=== PATIENT | female | born 1955 | race Caucasian/White ===

== ENCOUNTER → 2016-12-26 | Outpatient (CLI) | payer BC ==
[~2016-12-26] MED LIST: DENOSUMAB 60 MG/ML 1 ML SYRINGE SQ ONE
[2016-12-26 10:13] VITALS: BP 149/84; PULSE 63; RESP 18; TEMP 98.2
== END | disposition home or self-care (01) ==
LOC: PROCWHC3 09:56
PROVIDERS: ATTEND Family Medicine
DX: M81.0 Age-related osteoporosis without current pathological fracture (principal)
CPT/HCPCS: 96372; J0897

== ENCOUNTER → 2018-01-03 | Outpatient (CLI) | payer BC ==
[2018-01-03 13:37] VITALS: RESP 16; TEMP 98.1
[2018-01-03 13:42] VITALS: BP 124/77; PULSE 88
== END | disposition home or self-care (01) ==
LOC: PROCWHC3 13:24
PROVIDERS: ATTEND Family Medicine
DX: M81.0 Age-related osteoporosis without current pathological fracture (principal)
CPT/HCPCS: 96372; J0897

== ENCOUNTER → 2018-06-11 | Outpatient (CLI) | payer BC ==
[2018-06-11 14:30] LABS: Basophils % (A) 0 %; Eosinophils # (A) 0.2 k/uL (0-0.7); Eosinophils % (A) 3 %; HCT 38.9 % (34.0-46.0); HGB 12.2 gm/dL (11.4-16.0); Lymphocytes # (A) 2.6 k/uL (1.0-4.8); Lymphocytes % (A) 38 %; MCH 28.5 pg (25.0-35.0); MCHC 31.4 g/dL (31.0-37.0); MCV 90.9 fL (80.0-100.0); Mean Platelet Volume 6.8; Monocytes # (A) 0.4 k/uL (0-1.0); Monocytes % (A) 6 %; Neutrophils # (A) 3.5 k/uL (1.3-7.7); Neutrophils % (A) 51 %; Platelet Count 237 k/uL (150-450); RBC 4.28 m/uL (3.80-5.40); WBC 6.8 k/uL (3.8-10.6)
[2018-06-11 19:12] LABS: LDL Cholesterol,Calculated 74.8 mg/dL (0.0-131.0); VLDL Calculation 18.2 mg/dL (5.00-40.00)
[2018-06-11 19:13] LABS: Uric Acid 5.4 mg/dL (2.9-7.7)
[2018-06-11 19:21] LABS: T4, Free (Free Thyroxine) 1.1 ng/dL (0.80-1.80)
[2018-06-11 22:53] LABS: Hemoglobin A1C 5.7 % (4.0-6.0)
== END | disposition home or self-care (01) ==
LOC: LABWHC1 13:47
PROVIDERS: ATTEND Family Medicine
DX: N18.3 Chronic kidney disease, stage 3 (moderate) (principal); R73.03 Prediabetes; E78.2 Mixed hyperlipidemia; E03.9 Hypothyroidism, unspecified
CPT/HCPCS: 36415; 80061; 83036; 84439; 84443; 84550; 85025

== ENCOUNTER → 2019-01-18 | Outpatient (CLI) | payer BC ==
[2019-01-18 15:09] LABS: Basophils % (A) 1 %; Eosinophils # (A) 0.4 k/uL (0-0.7); Eosinophils % (A) 7 %; HCT 37.1 % (34.0-46.0); HGB 12.1 gm/dL (11.4-16.0); Lymphocytes # (A) 2.2 k/uL (1.0-4.8); Lymphocytes % (A) 37 %; MCH 29.3 pg (25.0-35.0); MCHC 32.6 g/dL (31.0-37.0); MCV 90.1 fL (80.0-100.0); Mean Platelet Volume 7.3; Monocytes # (A) 0.3 k/uL (0-1.0); Monocytes % (A) 5 %; Neutrophils # (A) 2.8 k/uL (1.3-7.7); Neutrophils % (A) 49 %; Platelet Count 268 k/uL (150-450); RBC 4.11 m/uL (3.80-5.40); RDW 13.9 % (11.5-15.5); WBC 5.8 k/uL (3.8-10.6)
[2019-01-18 19:02] LABS: African American GFR (CKD) 79.4 (60.0-200.0); Albumin 4.1 g/dL (3.80-4.90); Albumin/Globulin Ratio 1.95 (1.60-3.17); Anion Gap 7.5 mmol/L (4.00-12.00); BUN/Creat Ratio 18.89 Ratio (12.00-20.00); Carbon Dioxide 24.5 mmol/L (21.6-31.8); Globulin 2.1 g/dL (1.6-3.3); Total Bilirubin 0.5 mg/dL (0.2-1.2); Total Protein 6.2 g/dL (6.2-8.2)
[2019-01-18 20:44] LABS: Cat Epith & Dander IgE <0.10 kU/L; Cockroach IgE <0.10 kU/L; Dermato. farinae IgE <0.10 kU/L; Dog Dander IgE <0.10 kU/L
[2019-01-18 20:45] LABS: Aspergillus fumagatus IgE <0.10 kU/L
[2019-01-18 21:02] LABS: Birch IgE <0.10 kU/L; Elm IgE <0.10 kU/L; Oak IgE <0.10 kU/L; Ragweed,Common IgE 0.37 kU/L; Red Top (Bentgrass) IgE <0.10 kU/L
[2019-01-18 21:04] LABS: Alternaria alternata IgE <0.10 kU/L; Maple (Box Elder) IgE <0.10 kU/L
[2019-01-18 21:29] LABS: Hemoglobin A1C 5.6 % (4.0-6.0)
[2019-01-21 11:33] LABS: Alt. alternata IgE Class CLASS 0; Alternaria alternata IgE <0.35 kU/L (<0.35); Asperg. fumagatus IgE <0.35 kU/L (<0.35); Asperg. fumagatus IgE Class CLASS 0; Bermuda Grass IgE <0.35 kU/L (<0.35); Birch(Com.Silvr) IgE <0.35 kU/L (<0.35); Birch(Com.Silvr) IgE Class CLASS 0; Cat Epith & Dander IgE <0.35 kU/L (<0.35); Cat Epith & Dander IgE Class CLASS 0; Clad herbarum IgE <0.35 kU/L (<0.35); Cockroach IgE 0.47 kU/L (<0.35); Cottonwood IgE <0.35 kU/L (<0.35); Dermato. Pteronyssinus IgE <0.35 kU/L (<0.35); Dermato. farinae IgE <0.35 kU/L (<0.35); Dermato. farinae IgE Class CLASS 0; Dog Dander IgE <0.35 kU/L (<0.35); Elm IgE <0.35 kU/L (<0.35); Maple (Box Elder) IgE <0.35 kU/L (<0.35); Maple (Box Elder) IgE Class CLASS 0; Mountain Cedar IgE <0.35 kU/L (<0.35); Mountain Cedar IgE Class CLASS 0; Mouse Urine IgE Class CLASS 0; Nettle IgE <0.35 kU/L (<0.35); Nettle IgE Class CLASS 0; Oak IgE <0.35 kU/L (<0.35); Penicillium notatum IgE Class CLASS 0; Rough Marshelder IgE <0.35 kU/L (<0.35); Rough Marshelder IgE Class CLASS 0; Timothy Grass IgE <0.35 kU/L (<0.35); White Ash IgE Class CLASS 0
== END | disposition home or self-care (01) ==
LOC: LABWHC1 14:20
PROVIDERS: ATTEND Family Medicine
DX: J44.9 Chronic obstructive pulmonary disease, unspecified (principal); M81.0 Age-related osteoporosis without current pathological fracture; J67.8 Hypersensitivity pneumonitis due to other organic dusts
CPT/HCPCS: 36415; 80053; 82785; 83036; 84439; 84443; 85025; 86001; 86003; 86606; 86609

== ENCOUNTER → 2021-08-10 | Outpatient (CLI) | payer BC ==
[2021-08-10 18:14] LABS: Basophils # (A) 0.02 X 10*3/uL (0.00-0.10); Basophils % (A) 0.3 %; Eosinophils # (A) 0.13 X 10*3/uL (0.04-0.35); Eosinophils % (A) 2.2 %; HCT 38.4 % (37.2-46.3); HGB 11.8 g/dL (12.0-15.0); Lymphocytes # (A) 2.06 X 10*3/uL (0.90-5.00); Lymphocytes % (A) 35.4 %; MCHC 30.7 g/dL (32.0-37.0); MCV 91.2 fL (80.0-97.0); Mean Platelet Volume 9.9 fL (9.5-12.2); Monocytes # (A) 0.45 X 10*3/uL (0.20-1.00); Monocytes % (A) 7.7 %; Neutrophils # (A) 3.14 X 10*3/uL (1.80-7.70); Neutrophils % (A) 54.1 %; Platelet Count 256 X 10*3/uL (140-440); RBC 4.21 X 10*6/uL (4.10-5.20); RDW 13.6 % (11.5-14.5); WBC 5.82 X 10*3/uL (4.50-10.00)
[2021-08-10 18:40] LABS: % Iron Saturation 14.43 (12.00-45.00); ALT 11 U/L (8-44); AST 12 U/L (13-35); African American GFR (CKD) 69.7 (60.0-200.0); Albumin 3.8 g/dL (3.8-4.9); Albumin/Globulin Ratio 1.54 (1.60-3.17); Alkaline Phosphatase 130 U/L (41-126); BUN/Creat Ratio 13.52 Ratio (12.00-20.00); Blood Urea Nitrogen 13.4 mg/dL (9.0-27.0); Calcium 8.6 mg/dL (8.7-10.3); Carbon Dioxide 21.2 mmol/L (20.0-27.5); Chloride 109 mmol/L (96-109); Creatine Kinase 52 U/L (26-186); Globulin 2.5 g/dL (1.6-3.3); Glucose 102 mg/dL (70-110); Iron 52 ug/dL (50-170); Non-African American GFR(CKD) 60.1 (60.0-200.0); Sodium 142 mmol/L (135-145); Total Iron Binding Capacity 358 ug/dL (228-460); Total Protein 6.3 g/dL (6.2-8.2); Uric Acid 4.8 mg/dL (2.9-7.7)
[2021-08-10 18:47] LABS: C Reactive Protein <0.30 mg/dL (0.00-0.80)
[2021-08-10 19:04] LABS: Chol/HDL Ratio 2.67 Ratio; LDL Cholesterol,Calculated 98.7 mg/dL (0.0-131.0); VLDL Calculation 13.82 mg/dL (5.00-40.00)
[2021-08-10 19:36] LABS: Protein, Total 6.4 g/dL (6.2-8.2)
[2021-08-10 20:11] LABS: Erythrocyte Sedimentation Rate 35 mm/Hr (0-30)
[2021-08-11 12:25] LABS: Albumin 3.51 g/dL (3.80-4.90); Gamma Globulin 1.05 g/dL (0.70-1.50)
== END | disposition home or self-care (01) ==
LOC: LABWHC1 11:00
PROVIDERS: ATTEND Family Medicine
DX: G25.81 Restless legs syndrome (principal); M23.91 Unspecified internal derangement of right knee; N18.2 Chronic kidney disease, stage 2 (mild); E03.9 Hypothyroidism, unspecified
CPT/HCPCS: 36415; 80053; 80061; 82306; 82550; 82607; 83540; 83550; 83883; 84165; 84439; 84443; 84550; 85025; 85652; 86140; 86334

== ENCOUNTER → 2022-06-27 | Outpatient (CLI) | payer MEDICARE, BC ==
[2022-06-27 22:51] LABS: Basophils # (A) 0.02 X 10*3/uL (0.00-0.10); Basophils % (A) 0.3 %; Eosinophils # (A) 0.07 X 10*3/uL (0.04-0.35); Eosinophils % (A) 1.1 %; HCT 40.2 % (37.2-46.3); HGB 13.2 g/dL (12.0-15.0); Immature Grans, Automated 0.3 %; Lymphocytes # (A) 2.16 X 10*3/uL (0.90-5.00); Lymphocytes % (A) 33.9 %; MCH 29.3 pg (27.0-32.0); MCHC 32.8 g/dL (32.0-37.0); MCV 89.3 fL (80.0-97.0); Mean Platelet Volume 9.5 fL (9.5-12.2); Monocytes # (A) 0.49 X 10*3/uL (0.20-1.00); Monocytes % (A) 7.7 %; NRBC Per 100 WBC 0 /100 WBCS (0.0-0.0); Neutrophils # (A) 3.61 X 10*3/uL (1.80-7.70); Neutrophils % (A) 56.7 %; Platelet Count 266 X 10*3/uL (140-440); WBC 6.37 X 10*3/uL (4.50-10.00)
[2022-06-27 22:54] LABS: Anion Gap 11.3 mmol/L (10.00-18.00); Carbon Dioxide 23.7 mmol/L (20.0-27.5); Potassium 4.2 mmol/L (3.5-5.5)
== END | disposition home or self-care (01) ==
LOC: LABPAT 15:30
PROVIDERS: ATTEND Orthopaedic Surgery
DX: Z01.812 Encounter for preprocedural laboratory examination (principal); M23.91 Unspecified internal derangement of right knee
CPT/HCPCS: 80051; 85025; 93005

== ENCOUNTER 2022-07-15 09:12 | Day surgery (SDC) | payer MEDICARE, BC ==
[2022-07-12 12:29] VITALS: BMI 29.2
--- NOTE | 2022-07-14 12:07 | P.HPOR ---
History of Present Illness H&P Date: 07/14/22 Chief Complaint: Right knee pain The patient is a 66-year-old retired female who presents with progressive right knee pain for the past several months. She notes locking and giving way. She has intermittent swelling along with pain with weightbearing activities. She is having night symptoms. She had a previous surgery several years ago. She's tried medications in addition to an injection and therapy without much relief. Review of Systems As per HPI Past Medical History Past Medical History: GERD/Reflux, Hyperlipidemia, Osteoarthritis (OA), Thyroid Disorder Additional Past Medical History / Comment(s): Carotid stenosis, being monitored by Process Environmental Technician, Dr Cleaning. History of Any Multi-Drug Resistant Organisms: None Reported Past Surgical History: Appendectomy, Back Surgery, Cholecystectomy, Hysterectomy, Tonsillectomy Additional Past Surgical History / Comment(s): Back fusion. Previous right knee surgery Past Anesthesia/Blood Transfusion Reactions: Motion Sickness, Postoperative Nausea & Vomiting (PONV) Past Psychological History: Anxiety, Depression Smoking Status: Former smoker Past Alcohol Use History: None Reported Additional Past Alcohol Use History / Comment(s): Quit smoking 7 yrs ago. Past Drug Use History: None Reported - Past Family History Mother Family Medical History: Deep Vein Thrombosis (DVT) Medications and Allergies Home Medications Medication Instructions Recorded Confirmed Type Atorvastatin [Lipitor] 40 mg PO DAILY 12/22/14 07/12/22 History Aspirin [Adult Low Dose Aspirin EC] 81 mg PO DAILY 07/12/22 07/12/22 History Celecoxib [CeleBREX] 200 mg PO DAILY 07/12/22 07/12/22 History Cyclobenzaprine [Flexeril] 5 mg PO TID PRN 07/12/22 07/12/22 History DULoxetine HCL [Cymbalta] 60 mg PO DAILY 07/12/22 07/12/22 History Levothyroxine Sodium [Synthroid] 50 mcg PO QAM 07/12/22 07/12/22 History Pantoprazole [Protonix] 40 mg PO QAM 07/12/22 07/12/22 History buPROPion HCL [buPROPion HCL XL] 300 mg PO QAM 07/12/22 07/12/22 History Allergies Allergy/AdvReac Type Severity Reaction Status Date / Time codeine Allergy Itching Verified 07/12/22 12:15 Penicillins Allergy Dyspnea Verified 07/12/22 12:15 Physical Examination - Knee right Appearance: effusion Effusion grade: trace Varus alignment in stance: 5 degrees Tenderness with palpation: lateral Gait: limping ROM: extension: -10 degrees ROM: flexion: 100 degrees Crepitus with motion: Yes Strength: extension: 5/5 Strength: flexion: 5/5 Meniscal tests: lateral meniscal tests: positive, lateral joint line pain: positive Results The patient is a well-developed well-nourished female proximal a 5 foot 4, 160 pounds of mesomorphic habitus. HEENT exam is nonfocal, neck is supple. She has painless passive motion the right hip. Straight leg raise is negative. Her distal neurovascular appears intact in the right lower extremity. - Diagnostic results Knee MRI: image reviewed (Right knee MRI shows evidence of a complex posterior lateral meniscal tear.) Assessment and Plan Assessment: Right knee internal derangement/symptomatic medial meniscal tear Right knee moderate medial compartment osteoarthrosis Plan: I talked to the patient at length regarding her condition along with treatment options. She's having persistent pain and mechanical symptoms despite previous conservative measures. After thorough discussion she has to proceed with surgery. We'll plan to proceed with arthroscopic evaluation with possible partial lateral meniscectomy of the right knee. We'll likely perform that as an outpatient procedure. Risks and benefits were discussed at length in layman's terms.
[2022-07-15] MEDS ORDERED: LIDOCAINE 1% (10MG/ML) FOR IV START INTRADERMA PRN (09:39)
[2022-07-15] MEDS ORDERED: HYDROmorphone 0.5 MG/0.5 ML SYRINGE IVP PRN (09:39)
[2022-07-15] MEDS ORDERED: ONDANSETRON 4 MG/2 ML VIAL IVP ONE ×2 (09:39→13:25)
[2022-07-15] MEDS ORDERED: LACTATED RINGERS 1,000 ML IV SCH (09:39)
[2022-07-15] MEDS ORDERED: DEXAMETHASONE SOD PHOSPHATE 4 MG/ML 1 ML VIAL IV ONE (09:39)
[2022-07-15] MEDS ORDERED: MIDAZOLAM 2 MG/2 ML VIAL IV PRN (09:39)
[2022-07-15] MEDS ORDERED: LIDOCAINE 1% (10MG/ML) FOR IV START SQ ONE (09:55)
[2022-07-15] MEDS ORDERED: LIDOCAINE 2% INJ 20 MG/ML (2 ML VIAL) ONE (11:37)
[2022-07-15] MEDS ORDERED: KETOROLAC 15 MG/ML 1 ML VIAL ONE (11:37)
[2022-07-15] MEDS ORDERED: PROPOFOL 10 MG/ML 20 ML VIAL IV ONE (11:37)
[2022-07-15] MEDS ORDERED: MIDAZOLAM 2 MG/2 ML VIAL ONE (11:37)
[2022-07-15] MEDS ORDERED: fentaNYL (PF) 50 MCG/ML 2 ML AMP ONE (11:37)
[2022-07-15] MEDS ORDERED: EPINEPHrine (PF) 1 ML in SODIUM CHLORIDE 0.9% IRRIGATIO 3,000 ML IRRIGATION ONE ×4 (11:42)
--- NOTE | 2022-07-15 12:27 | P.OP ---
Date of Procedure: 07/15/22 Preoperative Diagnosis: Right knee internal derangement Postoperative Diagnosis: Right knee anterior/posterior lateral meniscal tear, posterior medial meniscal tear Procedure(s) Performed: Right knee arthroscopic partial lateral meniscectomy/partial medial meniscectomy Anesthesia: BRODERICK Surgeon: Andrea Gutierrez Estimated Blood Loss (ml): 10 Pathology: none sent Condition: stable Disposition: PACU Indications for Procedure: The patient's a 66-year-old female that presents with progressive right knee pain and mechanical symptoms despite conservative measures. A discussion of the risks and benefits of operative intervention versus continued conservative measures was made with patient. She opted to proceed with surgery. Operative risks to include infection, neurovascular injury, development of blood clots, possible incomplete resolution of symptoms, possible worsening symptoms and need for subsequent procedures was discussed. Informed consent was obtained. Operative Findings: As below Description of Procedure: The patient was brought to the operating room, and after induction of general anesthesia examined the right knee. Collaterals were stable, Sonja was negative, and posterior drawer was negative. The right lower extremity was prepped and draped in a normal fashion. A superior lateral portal was made through a 3 mm skin incision superior and lateral to the patella. This was used for outflow. A lateral portal was made through a 5 mm vertical skin incision lateral to the patella tendon above the joint line. Diagnostic arthroscopy was performed. On inspection of the medial compartment, a radial tear involving the posterior horn medial meniscus in the white-white junction was noted.. This was debrided back to stable base with straight baskets and a motorized shaver. On inspection of the notch, the anterior cruciate ligament appeared to be intact. On inspection of the lateral compartment, a complex tear involving the anterior horn was noted in the white-red junction. This to be back to stable base with a motorized shaver and straight baskets. An oblique tear involving the posterior of the lateral meniscus in the white-white junction was noted. This was debrided back to stable base with straight baskets. Grade 2 chondral changes were noted diffusely in lateral compartment.. On inspection of the patellofemoral articulation there was chondral fibrillation however no loose chondral fragments.. The gutters were clear of debris. The knee was then thoroughly irrigated. The portals were closed with Steri-Strips. A sterile dressing was applied in addition to a compression stocking. The patient was awoken from general anesthesia and transferred to recovery room in good condition. Blood loss was estimated at 10 mL. No complications were incurred.
[2022-07-15 12:37] VITALS: TEMP 97.3
[2022-07-15] MEDS: MEPERIDINE 50 MG/ML SYRINGE IVP ONE ×2 (12:43→13:05)
[2022-07-15 13:36] VITALS: RESP 16
[2022-07-15 14:39] VITALS: BP 143/86; PULSE 93
== END 2022-07-15 15:22 | disposition home or self-care (01) ==
LOC: OR 09:12
PROVIDERS: ATTEND Orthopaedic Surgery
DX: S83.241A Other tear of medial meniscus, current injury, right knee, initial encounter (principal); S83.281A Other tear of lateral meniscus, current injury, right knee, initial encounter; M19.90 Unspecified osteoarthritis, unspecified site; I73.9 Peripheral vascular disease, unspecified; E78.5 Hyperlipidemia, unspecified; E07.9 Disorder of thyroid, unspecified; K21.9 Gastro-esophageal reflux disease without esophagitis; F32.A Depression, unspecified; F41.9 Anxiety disorder, unspecified; Z87.891 Personal history of nicotine dependence; I65.29 Occlusion and stenosis of unspecified carotid artery; Z79.891 Long term (current) use of opiate analgesic; Z79.82 Long term (current) use of aspirin; Z79.899 Other long term (current) drug therapy; Z79.1 Long term (current) use of non-steroidal anti-inflammatories (NSAID); Z88.0 Allergy status to penicillin; Z88.5 Allergy status to narcotic agent; Z90.49 Acquired absence of other specified parts of digestive tract; X58.XXXA Exposure to other specified factors, initial encounter
CPT/HCPCS: 29880; J2250; J1100; J2175; J2405; J0690; J0171; J3010; J1885; J2704; J1170; J2001

== ENCOUNTER → 2022-12-15 | Outpatient (CLI) | payer MEDICARE, BC ==
[2022-12-16 17:37] LABS: Cyclic Citrull Pep IgG Unit <1.5 U/mL (<=3.9); Cyclic Citrullinated Pep IgG Negative
== END | disposition home or self-care (01) ==
LOC: LABWHC1 15:13
PROVIDERS: ATTEND Family Medicine
DX: E03.9 Hypothyroidism, unspecified (principal); E78.2 Mixed hyperlipidemia; M25.561 Pain in right knee; N18.2 Chronic kidney disease, stage 2 (mild)
CPT/HCPCS: 36415; 80053; 80061; 84439; 84443; 84550; 85652; 86038; 86140; 86200; 86618

== ENCOUNTER → 2023-11-13 | Outpatient (CLI) | payer MEDICARE, BC ==
[2023-11-13 19:27] LABS: Basophils # (A) 0.04 X 10*3/uL (0.00-0.10); Basophils % (A) 0.7 %; Eosinophils # (A) 0.13 X 10*3/uL (0.04-0.35); Eosinophils % (A) 2.2 %; HCT 38.3 % (37.2-46.3); HGB 12.3 g/dL (12.0-15.0); Lymphocytes # (A) 2.15 X 10*3/uL (0.90-5.00); Lymphocytes % (A) 36.9 %; MCH 28.5 pg (27.0-32.0); MCHC 32.1 g/dL (32.0-37.0); MCV 88.9 FL (80.0-97.0); Monocytes # (A) 0.49 X 10*3/uL (0.20-1.00); Monocytes % (A) 8.4 %; NRBC Per 100 WBC 0 X 10*3/uL (0.00-0.01); Neutrophils % (A) 51.6 %; Platelet Count 247 X 10*3/uL (140-440); RBC 4.31 X 10*6/uL (4.10-5.20); RDW 13.2 % (11.5-14.5); WBC 5.82 X 10*3/uL (4.50-10.00)
[2023-11-13 20:08] LABS: ALT 10 U/L (8-44); AST 17 U/L (13-35); Albumin/Globulin Ratio 1.54 Ratio (1.60-3.17); Alkaline Phosphatase 100 U/L (41-126); Blood Urea Nitrogen 16.6 mg/dL (9.0-27.0); Calcium 9.1 mg/dL (8.7-10.3); Carbon Dioxide 20.9 mmol/L (21.6-31.8); Chloride 108 mmol/L (96-109); Globulin 2.6 g/dL (1.6-3.3); Glucose 96 mg/dL (70-110); Potassium 3.9 mmol/L (3.5-5.5); Sodium 142 mmol/L (135-145); Total Bilirubin 0.6 mg/dL (0.3-1.2); Total Protein 6.6 g/dL (6.2-8.2)
[2023-11-14 10:58] LABS: INR 1.01 sec (0.93-1.11); Prothrombin Time 10.9 sec (9.9-11.9)
== END | disposition home or self-care (01) ==
LOC: LABPAT 14:03
PROVIDERS: ATTEND Orthopaedic Surgery
DX: Z01.812 Encounter for preprocedural laboratory examination (principal); Z22.322 Carrier or suspected carrier of Methicillin resistant Staphylococcus aureus; E78.2 Mixed hyperlipidemia; M17.11 Unilateral primary osteoarthritis, right knee; R79.1 Abnormal coagulation profile
CPT/HCPCS: 36415; 80053; 85025; 85610; 87070

== ENCOUNTER 2023-12-08 05:37 | Day surgery (SDC) | payer MEDICARE, BC ==
[2023-12-05 15:42] VITALS: BMI 28.1
--- NOTE | 2023-12-07 09:26 | P.HPOR ---
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 She is having pain with weightbearing activities and at night. She also notes instability. She tr ied medications in addition to injections with only temporary partial relief. Review of Systems As per HPI Past Medical History Past Medical History: GERD/Reflux, Hyperlipidemia, Osteoarthritis (OA), Thyroid Disorder Additional Past Medical History / Comment(s): Carotid stenosis, being monitored by Supervisor [employer], Dr Cleaning. History of Any Multi-Drug Resistant Organisms: None Reported Past Surgical History: Appendectomy, Back Surgery, Cholecystectomy, Hyste rectomy, Tonsillectomy Additional Past Surgical History / Comment(s): Back fusion. Previous right knee surgery, COLONOSCOPY, Past Anesthesia/Blood Transfusion Reactions: Motion Sickness, Postoperative Nausea & Vomiting (PONV) Smoking Status: Former smoker - Past Family History Mother Family Medical History: Deep Vein Thrombosis (DVT) Medications and Allergies Home Medications Medication Instructions Recorded Confirmed Type Atorvastatin [Lipitor] 40 mg PO DAILY 12/22/14 12/05/23 History Aspirin [Adult Low Dose Aspirin EC] 81 mg PO DAILY 07/12/22 12/05/23 History Celecoxib [CeleBREX] 200 mg PO DAILY 07/12/22 12/05/23 History Cyclobenzaprine [Flexeril] 5 mg PO TID PRN 07/12/22 12/05/23 History DULoxetine HCL [Cymbalta] 60 mg PO DAILY 07/12/22 12/05/23 History Levothyroxine Sodium [Synthroid] 50 mcg PO QAM 07/12/22 12/05/23 History Pantoprazole [Protonix] 40 mg PO QAM 07/12/22 12/05/23 History buPROPion HCL [buPROPion HCL XL] 300 mg PO QAM 07/12/22 12/05/23 History Amitriptyline HCl 10 mg PO HS 12/05/23 12/05/23 History Allergies Allergy/AdvReac Type Severity Reaction Status Date / Time codeine Allergy Itching Verified 12/05/23 15:03 Penicillins Allergy Dyspnea Verified 12/05/23 15:03 Physical Examination - Knee right Appearance: effusion Effusion grade: grade 2 Valgus alignment in stance: 10 degrees Tenderness with palpation: anterior, medial, lateral Pain: throughout ROM Gait: limping ROM: extension: -10 degrees ROM: flexion: 90 degrees Crepitus with motion: Yes Strength: extension: 5/5 Strength: flexion: 5/5 Meniscal tests: medial meniscal tests: positive, lateral meniscal tests: positive, medial joint line pain: positive, lateral joint line pain: positive Results Patient is a well-developed well-nourished female approximately 5 foot 4, 160 pounds. HEENT exam is nonfocal, neck is supple. She has painless passive motion of the right hip. Straight leg raise is negative. She is tender about the medial and lateral joint line of the right knee. Collaterals are stable, Sonja is negative, Kennedi's is equivocal. Her distal neurovascular appears intact in the right lower extremity. - Diagnostic results Knee x-ray: image reviewed (3 views of the right knee obtained in the office show severe lateral compartment narrowing with [id number] changes and subchondral sclerosis.) Assessment and Plan Assessment: Right knee severe lateral compartment osteoarthrosis Plan: I talked to the patient at length regarding her condition along with treatment options. At this point she is quite symptomatic despite conservative measures. After a thorough discussion she opts to proceed with surgery. We will plan to proceed with right total knee arthroplasty. Risks and benefits are discussed at length in layman's terms. We will institute DVT prophylaxis postoperatively.
[~2023-12-08 05:37] MED LIST changes: -DENOSUMAB 60 MG/ML 1 ML SYRINGE SQ ONE; +TRANEXAMIC 1,000 MG/100ML-NACL 1,000 MG in SALINE 1 100ML.BAG IVPB PRN
[2023-12-08] MEDS: ACETAMINOPHEN TAB 500 MG TAB PO PRN (06:47)
[2023-12-08] MEDS: MELOXICAM 7.5 MG TAB PO PRN (06:48)
[2023-12-08] MEDS: DEXAMETHASONE SOD PHOSPHATE 4 MG/ML 1 ML VIAL IV ONE (06:50)
[2023-12-08] MEDS: LACTATED RINGERS 1,000 ML IV SCH (06:50)
[2023-12-08] MEDS: ONDANSETRON 4 MG/2 ML VIAL IVP ONE (06:50)
[2023-12-08] MEDS: MIDAZOLAM 2 MG/2 ML VIAL IVP ONE (06:58)
[2023-12-08] MEDS: fentaNYL (PF) 50 MCG/ML 2 ML AMP IVP ONE (06:58)
[2023-12-08] MEDS ORDERED: fentaNYL (PF) 50 MCG/ML 2 ML AMP IV PRN (07:00)
[2023-12-08] MEDS: IV FLUID CONTINUATION 1,000 ML IV ONE (07:17)
[2023-12-08] MEDS ORDERED: KETAMINE HCL IN 0.9 % NACL 50 MG/5 ML SYRINGE ONE (07:23)
[2023-12-08] MEDS ORDERED: ROPIVACAINE 5 MG/ML 30 ML VIAL ONE (07:23)
[2023-12-08] MEDS ORDERED: PHENYLEPHRINE 10 MG/ML VIAL ONE (07:23)
[2023-12-08] MEDS ORDERED: TRANEXAMIC 1,000 MG/100ML-NACL PREMIX BAG ONE (07:23)
[2023-12-08] MEDS ORDERED: MIDAZOLAM 2 MG/2 ML VIAL ONE (07:23)
[2023-12-08] MEDS ORDERED: PROPOFOL 10 MG/ML 20 ML VIAL IV ONE (07:23)
[2023-12-08] MEDS ORDERED: SODIUM CHLORIDE 0.9% (PF) 10 ML VIAL ONE (07:23)
[2023-12-08] MEDS ORDERED: fentaNYL (PF) 50 MCG/ML 2 ML AMP ONE (07:23)
[2023-12-08] MEDS: ceFAZolin 1,000 MG in SODIUM CHLORIDE 0.9% 1,000 ML IRRIGATION ONE (08:12)
[2023-12-08] MEDS: LACTATED RINGERS 1,000 ML IV ONE (08:48)
[2023-12-08] MEDS ORDERED: MAGNESIUM HYDROXIDE 2,400 MG/30 ML CUP PO PRN (09:14)
[2023-12-08] MEDS ORDERED: NALOXONE 0.4 MG/ML 1 ML VIAL IV PRN (09:14)
[2023-12-08] MEDS ORDERED: HYDROcodone/APAP 5-325MG 1 EACH TAB PO PRN (09:14)
[2023-12-08] MEDS ORDERED: HYDROmorphone 0.5 MG/0.5 ML SYRINGE IVP PRN ×2 (09:14→10:26)
--- NOTE | 2023-12-08 09:31 | P.OP ---
Date of Procedure: 12/08/23 Preoperative Diagnosis: Right knee severe tricompartmental osteoarthrosis Postoperative Diagnosis: Same Procedure(s) Performed: Right total knee arthroplastycementedcruciate retaining Implants: [employer] journey 2 size 4 cemented femoral component, size 3 cemented tibial component, 9 mm articular surface, 29 mm cemented patellar component. Anesthesia: regional, spinal Surgeon: Andrea Gutierrez Medical Service Technician #1: Isaac Parikh Estimated Blood Loss (ml): 50 Pathology: none sent Condition: stable Disposition: PACU Indications for Procedure: The patient is a 67-year-old female who presents with progressive right knee pain secondary to osteoarthrosis despite conservative measures. A discussion of the risks and benefits of operative intervention versus continued conservative measures was made with the patient. She opted proceed with surgery. Operative risks include infection, fracture, neurovascular injury, development of blood clots, possible component loosening, possible component failure and need for subsequent procedures was discussed. Informed consent was obtained. Operative Findings: As below Description of Procedure: The patient was brought to the operating room, and after induction of spinal anesthesia the right lower extremity was prepped and draped in a normal fashion. The tourniquet was inflated to 270 mmHg. A longitudinal incision extending 3 finger breaths above the superior pole of the patella extending to the medial aspect the tibial tubercle was then made. The skin and subcutaneous tissues were divided sharply. Electrocautery was used for hemostasis. A medial parapatellar arthrotomy was then performed. The medial soft tissues to include the superficial and deep portions of the medial collateral ligament as well as the medial hamstring tendons were elevated subperiosteally. The proximal medial tibia osteophytes were carefully removed. The patella was everted. The knee was flexed. A portion of the retropatellar fat pad was excised sharply. The anterior cruciate ligament was sacrificed. A starting hole was made in the distal femur 1 cm anterior to the posterior cruciate origin. An intramedullary femoral guide was gently inserted planning on 5 valgus distal cut with 9 mm distal resection. The cutting block was pinned in place. The distal cut was then made. The posterior referencing sizing guide was utilized. 3 of external rotation was built into the system and verified off the trans- epicondylar axis and the posterior condyles. I felt size 4 was most appropriate. The cutting block was pinned in place. The anterior, posterior, and chamfer cuts were then made. The bone fragments were removed. A sulcus cut was then made with the appropriate guide. The trial size 4 femoral component was then placed and was fully seated. There was good anterior to posterior and medial to lateral fit. The distal peg holes were then drilled. The trial component was then removed. Attention was then paid towards preparing the proximal tibia. An extra medullary guide was utilized in line with the tibial shaft and second metatarsal distally. A 7 posterior slope was planned. I planned on 2 mm resection from the medial compartment. The cutting block was pinned in place. The proximal tibial cut was then made. The bone was removed in one fragment. The remnants of the medial and lateral menisci were excised the capsule junction with electrocautery. The tibia sized most appropriately at size 3. The posterior osteophytes off the distal femur were carefully removed with a curved osteotome. The trial tibial and femoral components were placed along with a 9 millimeters articular surface. I was able to obtain full flexion and extension with good stability with varus and valgus stress. After several flexion and extension cycles, the tibial rotation was marked with electrocautery in line with the medial one third of the tibial tubercle. Attention was then paid towards preparing the patella. A patella reamer was utilized taking this down to 14 mm of bone stock. A good flush cut was made. The patella sized most appropriately at 29 millimeters. The peg holes were then drilled. The trial component was placed. The knee was taken through a range of motion. I had good patellofemoral tracking with no hands technique. The trial components were then removed. The tibia was prepared in the appropriate rotation with appropriate drill and keel punch. The flexion and extension gaps were checked and felt to be symmetric. The bony surfaces were prepared with pulsatile lavage and drie d. The deep tibial component was then cemented in place and was fully seated. Excess cement was removed. The femoral component was cemented in place and was fully seated. Again excess cement was removed. The trial 9 millimeters surface was then inserted in the knee was put in full extension. The patella component was cemented in place. After the cement had sufficiently hardened, the knee was again taken through a range of motion. Again there was good stability in flexion and extension with varus and valgus stress. The trial articular surface was then removed. The final articular surface was placed and was impacted. Care was taken to avoid any soft tissue interposition. Pulsatile lavage was again utilized. The tourniquet was deflated with approximately 60 minutes total tourniquet time. There was minimal drainage therefore a deep drain was not placed. The medial parapatellar arthrotomy was then closed with #2 Ethibond suture. The subcutaneous tissues were reapproximated interrupted 2-0 Vicryl sutures. The skin was reapproximated with 3-0 subarticular strata fix suture. Skin tape and adhesive was applied. A sterile dressing was applied. The patient was then awoken from sedation and transferred to recovery room in good condition. Blood loss was estimated at 50 milliliters. No complications were incurred. Sponge and needle counts were correct at the end the case. Isaac YUAN assisted during the major components this case to include exposure, bone resection, and implantation.
[2023-12-08] MEDS: ROPIVACAINE 1,100 MG, SODIUM CHLORIDE 0.9% 500 ML 330 ML, EMPTY PAIN BALL 1 EACH MISCELLANE PRN (09:38)
[2023-12-08] MEDS: HYDROmorphone 0.5 MG/0.5 ML SYRINGE IVP ONE (10:03)
--- NOTE | 2023-12-08 10:31 | XR ---
EXAMINATION TYPE: XR knee limited RT DATE OF EXAM: 12/08/2023 COMPARISON: 12/08/2023 HISTORY: Evaluation for postop abnormality in alignment TECHNIQUE: 2V right knee FINDINGS: Tibiofemoral components in place. No acute fractures are evident. Postsurgical soft tissue changes are evident. IMPRESSION: 1. No acute fractures post right knee replacement
--- NOTE | 2023-12-08 11:40 | P.ANPRN ---
Procedure Note - Anesthesia - Nerve Block Performed Right Adductor Canal Single Time Out Performed: Yes (0657) Date of Procedure: 12/08/23 Procedure Start Time: 06:58 Procedure Stop Time: 07:02 Location of Patient: PreOp Indication: Acute Post-Operative Pain, Requested by Surgeon Specifically requested for management of pain by : Andrea Gutierrez Sedation Type: Sedate with meaningful contact maintained Preparation: Sterile Prep Position: Supine Catheter: None Needle Types: Pajunk Needle Gauge: 21 Ultrasound used to visualize needle placement: Yes Ultrasound used to observe medication spread: Yes Injectate: 0.5% Ropivacaine (see comment for volume) (15cc+10cc nacl pf) Blood Aspirated: No Pain Paresthesia on Injection Noted: No Resistance on Injection: Normal Image Stored and Saved: Yes Events: Uneventful and Well Tolerated
--- NOTE | 2023-12-08 11:42 | P.ANPRN ---
Procedure Note - Anesthesia - Nerve Block Performed Right iPack Single Time Out Performed: Yes (0657) Date of Procedure: 12/08/23 Procedure Start Time: :03 Procedure Stop Time: 07:05 Location of Patient: PreOp Indication: Acute Post-Operative Pain, Requested by Surgeon Specifically requested for management of pain by DrJackie: Andrea Gutierrez Sedation Type: Sedate with meaningful contact maintained Preparation: Sterile Prep Position: Supine Catheter: None Needle Types: Pajunk Needle Gauge: 21 Ultrasound used to visualize needle placement: Yes Ultrasound used to observe medication spread: Yes Injectate: 0.5% Ropivacaine (see comment for volume) (15cc +10cc nacl pf) Blood Aspirated: No Pain Paresthesia on Injection Noted: No Resistance on Injection: Normal Image Stored and Saved: Yes Events: Uneventful and Well Tolerated
[2023-12-08] MEDS: HYDROmorphone 0.5 MG/0.5 ML SYRINGE IVP PRN (12:33)
[2023-12-08] MEDS: hydrOXYzine pamoate 25 MG CAP PO PRN (18:13)
[2023-12-08] MEDS: ONDANSETRON 4 MG/2 ML VIAL IVP PRN (20:46)
[2023-12-08] MEDS: HYDROcodone/APAP 7.5-325MG 1 EACH TAB PO PRN (22:05)
[2023-12-08] MEDS: SENNOSIDES-DOCUSATE SODIUM 1 EACH TAB PO SCH (22:05)
[2023-12-09] MEDS ORDERED: HYDROmorphone 0.5 MG/0.5 ML SYRINGE IVP PRN (07:00)
[2023-12-09 07:51] LABS: Basophils % (A) 0 %; Eosinophils % (A) 0 %; HCT 32.6 % (34.0-46.0); HGB 10.2 gm/dL (11.4-16.0); Lymphocytes % (A) 25 %; MCH 28.6 pg (25.0-35.0); MCHC 31.1 g/dL (31.0-37.0); MCV 91.7 fL (80.0-100.0); Mean Platelet Volume 8.5; Monocytes # (A) 0.5 k/uL (0-1.0); Monocytes % (A) 6 %; Neutrophils # (A) 5.5 k/uL (1.3-7.7); Neutrophils % (A) 68 %; Platelet Count 197 k/uL (150-450); RBC 3.56 m/uL (3.80-5.40); RDW 13.6 % (11.5-15.5); WBC 8.1 k/uL (3.8-10.6)
[2023-12-09] MEDS: PANTOPRAZOLE 40 MG TABLET PO SCH (08:28)
[2023-12-09] MEDS: DULoxetine HCL 60 MG CAPSULE.DR PO SCH (08:28)
[2023-12-09] MEDS: RIVAROXABAN 10 MG TAB PO SCH (08:28)
[2023-12-09] MEDS: buPROPion XL 300 MG TAB.ER.24H PO SCH (08:29)
[2023-12-09] MEDS: ATORVASTATIN 40 MG TAB PO SCH (08:29)
--- NOTE | 2023-12-09 08:40 | P.PN ---
Subjective Progress Note Date: 12/09/23 Principal diagnosis: Right knee osteoarthritis Patient was seen at bedside this morning lying in the semirecumbent position with dressing present over right knee. Patient says she has been up walking several times since surgery yesterday. Patient says she has been doing exercis es while resting in bed this morning. Patient says she has been in a moderate amount of pain since surgery. Patient says she has not had a bowel movement yet, however, patient says she has been passing gas. Patient says she has a couple steps into her house. Patient says she does have a walker for home. Patient is looking forward to working with therapy this morning. Patient denies chest pain, fever, shortness of breath, nausea, vomiting, change in vision, loss of bowel/bladder control. Objective - Vital Signs Vital signs: Vital Signs Temp 97.6 F 12/08/23 18:30 Pulse 88 12/09/23 02:00 Resp 17 12/09/23 02:00 BP 105/68 12/09/23 02:00 Pulse Ox 97 12/09/23 02:00 FiO2 Intake & Output 12/08/23 12/09/23 12/09/23 18:59 06:59 18:59 Intake Total 1151 120 Output Total 50 Balance 1101 120 Weight 80.4 kg Intake: IV 1151 Oral 120 Output: Estimated Blood Loss 50 Other: # Voids 2 1 - Exam Right knee: Incision is clean, dry, and intact. The exofin fusion tape is in good condition. There is minimal soft tissue swelling and ecchymosis surrounding the medial and lateral aspects of the incision. Calf is soft, no tenderness with palpation. Plantar flexion, dorsiflexion, EHL, FHL are intact. Sensory exam to light touch throughout the extremity is intact, dorsal pedis pulses 2+. - Labs CBC & Chem 7: 12/09/23 07:28 Labs: Abnormal Lab Results - Last 24 Hours (Table) 12/09/23 Range/Units 07:28 RBC 3.56 L (3.80-5.40) m/uL Hgb 10.2 L (11.4-16.0) gm/dL Hct 32.6 L (34.0-46.0) % Assessment and Plan Assessment: 1. Right knee osteoarthritis -Postop day 1 status post right total knee arthroplasty Plan: 1. Right knee osteoarthritis -right total knee arthroplasty form yesterday, 12/08/2023. Patient stable at bedside this morning. Pending improvement in pain and completion of PT/OT and doing stairs, discharge home today with health services. 2. Appreciate medical management 3. Pain management -[place] 4. DVT prophylaxis -Xarelto in hospital. Going home with Eliquis 2.5 mg twice daily x 2 weeks 5. GI prophylaxis -senna 6. PT/OT -weightbearing as tolerated with walker 7. Encourage incentive spirometer use 8. Discharge planning -plan for home today with health services Time with Patient: Less than 30
--- NOTE | 2023-12-09 08:43 | P.DS ---
Providers Date of admission: 12/08/2023 Expected date of discharge: 12/09/23 Attending physician: Andrea Gutierrez Consults: 12/08/23 09:14 Consult Physician Routine Consulting Provider: Sen Noble Consult Reason/Comments: s/p right total knee arthroplasty Do you want consulting provider notified?: Yes Primary care physician: Juli Sincere [facility] Course: Date of admission: 12/08/2023 Date of discharge: 12/09/2023 Admission diagnosis: Right knee osteoarthritis Discharge diagnosis: Same Attending physician: Dr. Gutierrez Surgical procedures: Right total knee arthroplasty Brief history: Patient is a 67-year-old female with a history of progressive primary right knee osteoarthritis. At this point patient has failed conservative treatment measures and has opted to proceed with a elective right total knee arthroplasty. Hospital course: Details of patient's surgery can be found in operative report. Patient tolerated the procedure well and [facility] Patient's orthopeidc and medical care was provided daily. Patient had daily laboratory tests performed for evaluation of overall blood counts. Patient had daily physical therapy to include strengthening range of motion as well as education with walker ambulation. Patient was treated with Xarelto for their postoperative DVT prophylaxis during their inpatient stay. Patient was noted to have a relatively uneventful postoperative course. Patient reported satisfactory pain control with oral pain medications by postoperative day 1. Patient showed satisfactory progress with physical therapy. Patient moved steadily through the program and had no difficulty meeting the goals by postoperative day 1. Given patient's otherwise satisfactory course and having met physical therapy goals, plan is to discharge patient home with health services on postoperative day 1. Discharge condition/disposition: Patient will be discharged home with health services in stable condition. Discharge medications: Instructions are given on resumption of patient's normal daily medications per primary care recommendation, in addition patient will be prescribed Hinton; senna; Eliquis 2.5 mg twice daily x 2 weeks. Discharge instructions: 1. Wound care and infection precautions, keep incision dry and covered while showering, no lotions, creams, moisturizers. No soaking, tubs, pools, hottubs. D o not scrub over the incision. 2. Weight-bear as tolerated with walker / cane until follow-up. 3. Ice and elevate when necessary. Do not exceed 20 minutes per hour with ice pack. 4. Utilize compression sleeve until seen at first follow up appointment. 5. Visiting nursing care. 6. Home physical therapy including home CPM. 7. Pain meds and anticoagulants per prescription. 8. Pain medication has potential to cause constipation. Increase oral fluid and fiber intake. Contact primary care provider if you have not had a bowel movement within 48 hours after discharge 9. No anti-inflammatory medication until discussed at first post operative visit, this including Motrin, Aleve, Mobic, Diclofenac. 10. Follow up in office at 2 weeks postop with Parth Girard PA-C / Isaac Praikh PA-C 11. Follow up with your primary care doctor 7-10 days after discharge. 12. Contact [facility] with any questions, . Assessment: Right knee osteoarthritis Procedures: Right total knee arthroplasty Patient Condition at Discharge: Good Plan - Discharge Summary Discharge Rx Participant: No New Discharge Prescriptions: New HYDROcodone/APAP 7.5-325MG [Hinton 7.5-325] 1 - 2 tab PO Q6HR PRN #36 tab PRN Reason: Pain Sennosides/Docusate Sodium [Senna Plus 8.6-50 mg Softgel] 1 each PO DAILY #20 capsule Apixaban [Eliquis] 2.5 mg PO BID #60 tab No Action Atorvastatin [Lipitor] 40 mg PO DAILY Pantoprazole [Protonix] 40 mg PO QAM Celecoxib [CeleBREX] 200 mg PO DAILY buPROPion HCL [buPROPion HCL XL] 300 mg PO QAM DULoxetine HCL [Cymbalta] 60 mg PO DAILY Aspirin [Adult Low Dose Aspirin EC] 81 mg PO DAILY Amitriptyline HCl 10 mg PO HS Levothyroxine Sodium [Synthroid] 50 mcg PO QAM Cyclobenzaprine [Flexeril] 5 mg PO TID PRN PRN Reason: Pain Acetaminophen Tab [Tylenol Tab] 1,000 mg PO Q6HR Discharge Medication List Atorvastatin [Lipitor] 40 mg PO DAILY 12/22/14 [History] Aspirin [Adult Low Dose Aspirin EC] 81 mg PO DAILY 07/12/22 [History] Celecoxib [CeleBREX] 200 mg PO DAILY 07/12/22 [History] Cyclobenzaprine [Flexeril] 5 mg PO TID PRN 07/12/22 [History] DULoxetine HCL [Cymbalta] 60 mg PO DAILY 07/12/22 [History] Levothyroxine Sodium [Synthroid] 50 mcg PO QAM 07/12/22 [History] Pantoprazole [Protonix] 40 mg PO QAM 07/12/22 [History] buPROPion HCL [buPROPion HCL XL] 300 mg PO QAM 07/12/22 [History] Amitriptyline HCl 10 mg PO HS 12/05/23 [History] Acetaminophen Tab [Tylenol Tab] 1,000 mg PO Q6HR 12/08/23 [History] Apixaban [Eliquis] 2.5 mg PO BID #60 tab 12/09/23 [Rx] HYDROcodone/APAP 7.5-325MG [Hinton 7.5-325] 1 - 2 tab PO Q6HR PRN #36 tab 12/09/23 [Rx] Sennosides/Docusate Sodium [Senna Plus 8.6-50 mg Softgel] 1 each PO DAILY #20 capsule 12/09/23 [Rx] Follow up Appointment(s)/Referral(s): Isaac Parikh PAC [PH[employer]IC[employer]] - 2 Weeks [facility],Equipment [NON-STAFF] - As Needed (Call [facility] when you get home and they will deliver your CPM) [facility], [NON-STAFF] - 1-2 Days ([facility] will call you to schedule your in home nursing and physical therapy visits. ) Patient Instructions/Handouts: Knee Replacement (DC), Knee Replacement (GEN) Activity/Diet/Wound Care/Special Instructions: Orthopedic Discharge Instructions: 1. Wound care and infection precautions, keep incision dry and covered while showering, no lotions, creams, moisturizers. No soaking, pools, hot tubs. Do not scrub over incision. 2. Weight-bear as tolerated with walker / cane until follow-up. 3. Ice and elevate when necessary. Do not exceed 20 minutes per hour with ice pack. 4. Utilize compression sleeve until seen at first follow up appointment. 5. Pain meds and anticoagulants per prescription. 6. Pain medication has potential to cause constipation. Increase oral fluid and fiber intake. Contact primary care provider if you have not had a bowel movement within 48 hours after discharge. 7. No anti-inflammatory medication until discussed at first post operative visit, this including Motrin, Aleve, Mobic, Diclofenac. 8. Follow up in office at 2 weeks postop with Parth Girard PA-C / Isaac Parikh PA-C 9. Follow up with your primary care doctor 7-10 days after discharge. 10. Contact [facility] with any questions, . Keep incision clean, dry, intact. While showering, cover fusion tape with Saran wrap. Keep fusion tape on until follow-up appointment in office in 2 weeks Discharge Disposition: HOME WITH HOME HEALTH SERVICES
--- NOTE | 2023-12-09 09:02 | P.PN ---
Progress Note - Text Progress Note Date: 12/09/23 Anesthesiology Postop day 1 status post total knee arthroplasty with adductor canal catheter. Patient doing well. VAS 8 out of 10. Gross strength intact in lower extremity. Afebrile. Denies alterations in sensorium. Catheter site intact. Heart regular rate Lungs nonlabored Abdomen nondistended Assessment: Postop day 1 status post total knee arthroplasty with adductor canal catheter Plan: 1.All questions answered. Maintain catheter 2 more days with patient removal at home. Instructions to be given at discharge. 2.This note was dictated using [employer] software. Please be advised there is a potential for misspellings or errors in radar technician.
[2023-12-09] MEDS: AMITRIPTYLINE HCL 10 MG TAB PO SCH (21:45)
[2023-12-10] MEDS: LEVOTHYROXINE 50 MCG TAB PO SCH (06:10)
--- NOTE | 2023-12-10 07:09 | P.CONS ---
History of Present Illness - Reason for Consult Consult date: 12/09/23 Medical management, status post right knee arthroplasty - History of Present Illness This is a very pleasant 67-year-old female who is admitted under orthopedic services and is status post right total knee arthroplasty. Patient follows with Dr. Moody in the outpatient setting with a past medical history of GERD, hyperl ipidemia, osteoarthritis, hypothyroid, anxiety/depression, carotid stenosis. Patient denies smoking, alcohol, or illicit drug use. Patient on exam this morning having increased pain along with some nausea and not much of an appetite and apparently the subcu pain pump ball was clamped. Patient worked with PT/OT therapy as patient reports planning on going home. Patient will likely be monitored overnight for pain management with discussion of discharge planning in 24 hours. Patient surgical site appears dry and intact with no significant redness and minimal swelling noted. Patient has positive pedal pulses on the right lower extremity. Patient denies chest pain or shortness of breath and incentive spirometer is at the bedside encouraged the patient to use at least 10 times every hour while awake. Patient reports she did see Dr. Sawant for presurgical clearance. REVIEW OF SYSTEMS: CONSTITUTIONAL: No fever, no malaise, no fatigue. HEENT: No recent visual problems or hearing problems. Denied any sore throat. CARDIOVASCULAR: No chest pain, orthopnea, PND, no palpitations, no syncope. PULMONARY: No shortness of breath, no cough, no hemoptysis. GASTROINTESTINAL: No diarrhea, reporting some occasional nausea, no vomiting, no abdominal pain. NEUROLOGICAL: No headaches, no weakness, no numbness. HEMATOLOGICAL: Denies any bleeding or petechiae. GENITOURINARY: Denies any burning micturition, frequency, or urgency. MUSCULOSKELETAL/RHEUMATOLOGICAL: Reports right knee pain, some minimal swelling ENDOCRINE: Denies any polyuria or polydipsia. The rest of the 14-point review of systems is negative. PHYSICAL EXAMINATION: GENERAL: The patient is alert and oriented x3, not in any acute distress. Well developed, well nourished. HEENT: Pupils are round and equally reacting to light. EOMI. No scleral icterus. No conjunctival pallor. Normocephalic, atraumatic. No pharyngeal erythema. No thyromegaly. CARDIOVASCULAR: S1 and S2 muffled PULMONARY: Chest is clear to auscultation, no wheezing or crackles. ABDOMEN: Soft, nontender, nondistended, normoactive bowel sounds. No palpable organomegaly. MUSCULOSKELETAL: Right knee surgical site is dry and intact with minimal swelling and no redness or drainage noted on the dressing EXTREMITIES: No cyanosis, clubbing, or pedal edema. Positive pedal pulses and cap refill less than 3 on the right NEUROLOGICAL: Gross neurological examination did not reveal any focal deficits. Diffusely weak SKIN: No rashes. Assessment: Status post right total knee arthroplasty History of GERD Hyperlipidemia Hypothyroidism History of carotid stenosis being monitored by her camp housekeeper Dr. Cleaning outpatient Anxiety/depression history GI prophylaxis DVT prophylaxis Full code Plan: Patient was admitted under orthopedic services and was able to work with physical therapy although having intense pain. Monitor overnight for pain management with possible discharge planning in 24 hours Patient having some generalized nausea with no vomiting and not much of an appetite. Recommend to continue with Zofran and slowly increase diet as tolerated Home medications reviewed and resumed as appropriate Encouraged incentive spirometer use at least 10 times every hour while awake Elevating right lower extremity at rest We will continue to follow with orthopedics during hospitalization. Thank you kindly for this consultation. The impression and plan of care has been dictated by Mariela Garvey, Nurse Practitioner as directed. Dr. Mariya MD I have performed a history and examination and MDM of this patient, discussed the same with the dictator, and agree with the dictator's assessment and plan as written ,documented as a scribe. Based on total visit time, I have performed more than 50% of the visit. Past Medical History Past Medical History: GERD/Reflux, Hyperlipidemia, Osteoarthritis (OA), Thyroid Disorder Additional Past Medical History / Comment(s): Carotid stenosis, being monitored by Nitrocellulose Maker, Dr Cleaning. History of Any Multi-Drug Resistant Organisms: None Reported Past Surgical History: Appendectomy, Back Surgery, Cholecystectomy, Hysterectomy, Tonsillectomy Additional Past Surgical History / Comment(s): Back fusion. Previous right knee surgery, COLONOSCOPY, TRK 12/08/2023 Past Anesthesia/Blood Transfusion Reactions: Motion Sickness, Postoperative Nausea & Vomiting (PONV) Past Psychological History: Anxiety, Depression Smoking Status: Former smoker Past Alcohol Use History: None Reported Additional Past Alcohol Use History / Comment(s): Quit smoking 2015 Past Drug Use History: None Reported - Past Family History Mother Family Medical History: Deep Vein Thrombosis (DVT) Medications and Allergies Home Medications Medication Instructions Recorded Confirmed Type Atorvastatin [Lipitor] 40 mg PO DAILY 12/22/14 12/05/23 History Aspirin [Adult Low Dose Aspirin EC] 81 mg PO DAILY 07/12/22 12/05/23 History Celecoxib [CeleBREX] 200 mg PO DAILY 07/12/22 12/05/23 History Cyclobenzaprine [Flexeril] 5 mg PO TID PRN 07/12/22 12/05/23 History DULoxetine HCL [Cymbalta] 60 mg PO DAILY 07/12/22 12/05/23 History Levothyroxine Sodium [Synthroid] 50 mcg PO QAM 07/12/22 12/05/23 History Pantoprazole [Protonix] 40 mg PO QAM 07/12/22 12/05/23 History buPROPion HCL [buPROPion HCL XL] 300 mg PO QAM 07/12/22 12/05/23 History Amitriptyline HCl 10 mg PO HS 12/05/23 12/05/23 History Acetaminophen Tab [Tylenol Tab] 1,000 mg PO Q6HR 12/08/23 12/08/23 History Apixaban [Eliquis] 2.5 mg PO BID #60 tab 12/09/23 Rx HYDROcodone/APAP 7.5-325MG [Sullivan 1 - 2 tab PO Q6HR PRN #36 tab 12/09/23 Rx 7.5-325] Sennosides/Docusate Sodium [Senna 1 each PO DAILY #20 capsule 12/09/23 Rx Plus 8.6-50 mg Softgel] Allergies Allergy/AdvReac Type Severity Reaction Status Date / Time codeine Allergy Itching Verified 12/08/23 06:09 Penicillins Allergy Dyspnea Verified 12/08/23 06:09 Physical Exam Vitals: Vital Signs Temp Pulse Resp BP BP Pulse Ox 12/09/23 07:18 98.2 F 73 18 99/60 94 L 12/09/23 02:00 88 17 105/68 97 12/08/23 18:30 97.6 F 90 18 143/80 96 12/08/23 13:23 97.5 F L 82 18 145/74 98 12/08/23 12:16 97.8 F 76 18 155/82 95 12/08/23 11:30 73 14 146/78 95 12/08/23 11:00 72 14 151/69 94 L 12/08/23 10:40 68 14 164/81 100 12/08/23 10:25 67 14 179/86 99 12/08/23 10:10 62 14 170/85 99 12/08/23 09:56 63 14 158/80 98 Intake and Output 12/08/23 12/09/23 12/09/23 22:59 06:59 14:59 Intake Total 120 Balance 120 Intake: Oral 120 Other: # Voids 2 1 Results CBC & Chem 7: 12/09/23 07:28 Labs: Abnormal Lab Results - Last 24 Hours (Table) 12/09/23 Range/Units 07:28 RBC 3.56 L (3.80-5.40) m/uL Hgb 10.2 L (11.4-16.0) gm/dL Hct 32.6 L (34.0-46.0) %
[2023-12-10 07:46] VITALS: RESP 17
--- NOTE | 2023-12-10 11:33 | P.PN ---
Subjective Progress Note Date: 12/10/23 Principal diagnosis: Right knee osteoarthritis Patient was seen at bedside this morning lying in the semirecumbent position with dressing present over right knee. Patient says she has been up walking several times since surgery. Patient says she has been doing exercises while r esting in bed this morning. Patient says she has been in fair amount of pain since surgery. Patient says she has not had a bowel movement yet, however, patient says she has been passing gas. Patient says she has a couple steps into her house. Patient says she does have a walker for home. Patient says she is looking forward to going home today. Patient denies chest pain, fever, shortness of breath, nausea, vomiting, change in vision, loss of bowel/bladder control. Objective - Vital Signs Vital signs: Vital Signs Temp 98.2 F 12/10/23 07:31 Pulse 90 12/10/23 07:31 Resp 17 12/10/23 07:31 BP 120/76 12/10/23 07:31 Pulse Ox 92 L 12/10/23 07:31 FiO2 Intake & Output 12/09/23 12/10/23 12/10/23 18:59 06:59 18:59 Other: Voiding Method Toilet Toilet # Voids 1 5 - Exam Right knee: Incision is clean, dry, and intact. The exofin fusion tape is in good condition. There is minimal soft tissue swelling and ecchymosis surrounding the medial and lateral aspects of the incision. Calf is soft, no tenderness with palpation. Plantar flexion, dorsiflexion, EHL, FHL are intact. Sensory exam to light touch throughout the extremity is intact, dorsal pedis pulses 2+. - Labs CBC & Chem 7: 12/09/23 07:28 Assessment and Plan Assessment: 1. Right knee osteoarthritis -Postop day 2 status post right total knee arthroplasty Plan: 1. Right knee osteoarthritis -right total knee arthroplasty performed 12/08/2023. Patient stable at bedside this morning. discharge home today with health services. 2. Appreciate medical management 3. Pain management -[place] 4. DVT prophylaxis -Xarelto in hospital. Going home with Eliquis 2.5 mg twice daily x 2 weeks 5. GI prophylaxis -senna 6. PT/OT -weightbearing as tolerated with walker 7. Encourage incentive spirometer use 8. Discharge planning -plan for home today with health services Time with Patient: Less than 30
[2023-12-10 14:58] VITALS: BP 120/68; PULSE 84; TEMP 97.6
--- NOTE | 2023-12-12 22:14 | P.PN ---
Subjective Progress Note Date: 12/12/23 This is a very pleasant 67-year-old female who is admitted under orthopedic services and is status post right total knee arthroplasty. Patient follows with Dr. Moody in the outpatient setting with a past medical history of GERD, hyperlipidemia, osteoarthritis, hypothyroid, anxiety/depression, carotid angelic nosis. Patient denies smoking, alcohol, or illicit drug use. Patient on exam this morning having increased pain along with some nausea and not much of an appetite and apparently the subcu pain pump ball was clamped. Patient worked with PT/OT therapy as patient reports planning on going home. Patient will likely be monitored overnight for pain management with discussion of discharge planning in 24 hours. Patient surgical site appears dry and intact with no significant redness and minimal swelling noted. Patient has positive pedal pulses on the right lower extremity. Patient denies chest pain or shortness of breath and incentive spirometer is at the bedside encouraged the patient to use at least 10 times every hour while awake. Patient reports she did see Dr. Sawant for presurgical clearance. 12/10/2023 Patient is evaluated in follow up postoperative day #2 right total knee arthro plasty. She was kept overnight for pain management and has significant improvement in her pain to the right knee. Having no acute complaints hemodynamically she is stable. Patient will discharge home today. REVIEW OF SYSTEMS: CONSTITUTIONAL: No fever, no malaise, no fatigue. HEENT: No recent visual problems or hearing problems. Denied any sore throat. CARDIOVASCULAR: No chest pain, orthopnea, PND, no palpitations, no syncope. PULMONARY: No shortness of breath, no cough, no hemoptysis. GASTROINTESTINAL: No diarrhea, reporting some occasional nausea, no vomiting, no abdominal pain. NEUROLOGICAL: No headaches, no weakness, no numbness. The rest of the 14-point review of systems is negative. PHYSICAL EXAMINATION: GENERAL: The patient is alert and oriented x3, not in any acute distress. Well developed, well nourished. HEENT: Pupils are round and equally reacting to light. EOMI. No scleral icterus. No conjunctival pallor. Normocephalic, atraumatic. No pharyngeal erythema. No th yromegaly. CARDIOVASCULAR: S1 and S2 muffled PULMONARY: Chest is clear to auscultation, no wheezing or crackles. ABDOMEN: Soft, nontender, nondistended, normoactive bowel sounds. No palpable organomegaly. MUSCULOSKELETAL: Right knee surgical site is dry and intact with minimal swelling and no redness or drainage noted on the dressing EXTREMITIES: No cyanosis, clubbing, or pedal edema. Positive pedal pulses and cap refill less than 3 on the right NEUROLOGICAL: Gross neurological examination did not reveal any focal deficits. Diffusely weak SKIN: No rashes. Assessment: Status post right total knee arthroplasty History of GERD Hyperlipidemia Hypothyroidism History of carotid stenosis being monitored by her bridge attacher Dr. Cleaning outpatient Anxiety/depression history GI prophylaxis DVT prophylaxis Full code Plan: Patient was admitted under orthopedic services and was able to work with physical therapy although having intense pain. Monitor overnight for pain management with improvement and medically she can be discharged home. Encouraged incentive spirometer use at least 10 times every hour while awake Elevating right lower extremity at rest We will continue to follow with orthopedics during hospitalization. Thank you kindly for this consultation. The impression and plan of care has been dictated by Vania Thomas, Nurse Practitioner as directed. Dr. Mariya MD I have performed a history and examination and MDM of this patient, discussed the same with the dictator, and agree with the dictator's assessment and plan as written ,documented as a scribe. Based on total visit time, I have performed more than 50% of the visit. Objective - Vital Signs Vital signs: Vital Signs Temp 98.2 F 12/10/23 07:31 Pulse 90 12/10/23 08:00 Resp 17 12/10/23 08:00 BP 120/76 12/10/23 07:31 Pulse Ox 92 L 12/10/23 07:31 FiO2 Intake & Output 12/09/23 12/10/23 12/10/23 18:59 06:59 18:59 Other: Voiding Method Toilet Toilet Toilet # Voids 1 5 - Labs CBC & Chem 7: 12/09/23 07:28 Assessment and Plan Time with Patient: Less than 30
== END 2023-12-10 15:00 | disposition home health service (06) ==
LOC: OR 05:37 → 4SSUR 11:28 → OR 12-10 15:00
PROVIDERS: ATTEND Orthopaedic Surgery
DX: M17.11 Unilateral primary osteoarthritis, right knee (principal); E03.9 Hypothyroidism, unspecified; E78.5 Hyperlipidemia, unspecified; F32.A Depression, unspecified; F41.9 Anxiety disorder, unspecified; G89.18 Other acute postprocedural pain; K21.9 Gastro-esophageal reflux disease without esophagitis; Z79.01 Long term (current) use of anticoagulants; Z79.1 Long term (current) use of non-steroidal anti-inflammatories (NSAID); Z79.82 Long term (current) use of aspirin; Z79.890 Hormone replacement therapy; Z79.899 Other long term (current) drug therapy; Z87.891 Personal history of nicotine dependence; Z88.0 Allergy status to penicillin; Z90.49 Acquired absence of other specified parts of digestive tract
CPT/HCPCS: 97162; 64999; 64448; 85025; 73560; 27447; C1713 ×2; C1776; C1751; J2250; J1100; J0690 ×2; J2405 ×2; J3010; J2795; J2704; J1170 ×2; J2371